=== PATIENT | female | born 1985 | race Caucasian/White ===

== ENCOUNTER 2016-10-05 20:33 | Emergency (ER) | payer BC ==
[2016-10-05] MEDS ORDERED: ONDANSETRON HCL IV 4 MG/2 ML VIAL IV ONE (20:58)
[2016-10-05] MEDS ORDERED: 0.9 % SODIUM CHLORIDE 1,000 ML BAG IV ONE ×2 (20:58→21:39)
[2016-10-05 21:08] LABS: BASO % 0.2 % (0-6); EOS % 0.7 % (0-6); GRAN % 74.6 % (47-80); HEMATOCRIT 43.2 % (35.0-47.0); HEMOGLOBIN 14.7 gm/dl (11.6-16.0); LYMPH % 19.3 % (16-45); MEAN CELL VOLUME 91.5 fl (81-97); MEAN CORPUSCULAR HEMOGLOBIN 31.1 pg (27-33); MEAN PLATELET VOLUME 11.4 fl (7.4-10.4); MONO % 5.2 % (0-9); PLATELET COUNT 299 K/uL (130-400); RED BLOOD COUNT 4.72 M/uL (3.80-5.40); RED CELL DISTRIBUTION WIDTH 13.4 % (11.5-14.5); WHITE BLOOD COUNT W/O DIFF 16.6 K/uL (4.2-12.2)
[2016-10-05 21:19] LABS: ALB/GLOB RATIO 1.5 (1.1-1.8); ALBUMIN 4.5 gm/dL (3.5-5.0); ALKALINE PHOSPHATASE 67 U/L (38-126); ALT/SGPT 21 U/L (9-52); ANION GAP 10.4 (7-16); AST/SGOT 17 U/L (14-36); BILIRUBIN,TOTAL 1.02 mg/dL (0.2-1.3); BLOOD UREA NITROGEN 18 mg/dL (7-17); CARBON DIOXIDE 20.6 mmol/L (22-30); CREATININE 0.7 mg/dL (0.52-1.04); EST GLOMERULAR FILTRATION RATE > 60 ml/min; GLUCOSE,RANDOM 90 mg/dL (70-110); LIPASE 130 U/L (23-300); TOTAL PROTEIN 7.5 gm/dL (6.3-8.2)
--- NOTE | 2016-10-05 21:21 | Emergency Department Record ---
History of Present Illness - General Chief complaint: Vomiting Stated complaint: WEAKNESS IN LEG, VOMITING Time Seen by Provider: 10/05/16 20:47 Source: Patient Mode of Arrival: Ambulatory Limitations: No limitations - History of Present Illness Initial comments: pt started vomiting 3 hours ago and has vomited multiple times. pt also became numb and rivera and felt like she was going to pass out. she has body aches. no diarrhea. she had a chicken wrap from [employer] for lunch. she had an allergy shot yesterday and started steroids MD complaint: Nausea, Vomiting Onset/Timin -: Hour(s) Description of Vomiting: Food contents Location: Diffuse Severity: Mild Severity scale (1-10): 4 Quality: Cramping Consistency: Constant, Getting worse Improves with: None Worsens with: None Context: Possible food poisoning Associated Symptoms: Nausea/vomiting, Weakness - Related Data Home Medications Medication Instructions Recorded Confirmed Last Taken Albuterol Sulfate [Proair Hfa] 1 - 2 puff IH Q4-6HR inhaler 09/03/15 Unknown Budesonide [Pulmicort] 1 mg IH 09/03/15 Unknown Prednisone [Prednisone 10Mg] 30 mg PO DAILY 10/05/16 10/05/16 Unknown Previous Rx's Medication Instructions Recorded Meclizine HCl [Antivert] 25 mg PO Q8H #10 tablet 10/06/16 Promethazine HCl [Phenergan] 25 mg PO Q8HR #10 tablet 10/06/16 Allergies Allergy/AdvReac Type Severity Reaction Status Date / Time cefuroxime axetil Allergy Intermediate VOMITING Unverified 06/22/16 11:36 [From Ceftin] egg Allergy Intermediate RESPIRATORY Unverified 06/22/16 11:36 IRRITATION penicillin V Allergy Intermediate RASH Unverified 06/22/16 11:36 Travel Screening - Travel/Exposure Within Last 30 Days Have you traveled within the last 30 days?: No Review of Systems Reviewed: No additional complaints except as noted below Constitutional: Reports: As per HPI. Denies: Chills, Fever, Malaise, Night sweats, Weakness, Weight change Eyes: Reports: As per HPI. Denies: Eye discharge, Eye pain, Photophobia, Vision change ENT: Reports: As per HPI. Denies: Congestion, Dental pain, Ear pain, Epistaxis , Hearing loss, Throat pain Respiratory: Reports: As per HPI. Denies: Cough, Dyspnea, Hemoptysis, Stridor, Wheezes Cardiovascular: Reports: As per HPI. Denies: Arrhythmia, Chest pain, Dyspnea on exertion, Edema, Murmurs, Orthopnea, Palpitations, Paroxysmal nocturnal dyspnea, Rheumatic Fever, Syncope Endocrine: Reports: As per HPI. Denies: Fatigue, Heat or cold intolerance, Polydipsia, Polyuria Gastrointestinal: Reports: As per HPI. Denies: Abdominal pain, Constipation, Diarrhea, Hematemesis, Hematochezia, Melena, Nausea, Vomiting Genitourinary: Reports: As per HPI. Denies: Abnormal menses, Discharge, Dyspareunia, Dysuria, Frequency, Hematuria, Incontinence, Retention, Urgency Musculoskeletal: Reports: As per HPI. Denies: Arthralgia, Back pain, Gout, Joint swelling, Myalgia, Neck pain Skin: Reports: As per HPI. Denies: Bruising, Change in color, Change in hair/ nails, Lesions, Pruritus, Rash Neurological: Reports: As per HPI. Denies: Abnormal gait, Confusion, Headache, Numbness, Paresthesias, Seizure, Tingling, Tremors, Vertigo, Weakness Psychiatric: Reports: As per HPI. Denies: Anxiety, Auditory hallucinations, Depression, Homicidal thoughts, Suicidal thoughts, Visual hallucinations Hematological/Lymphatic: Reports: As per HPI. Denies: Anemia, Blood Clots, Easy bleeding, Easy bruising, Swollen glands Past Medical History - SOCIAL HISTORY Smoking Status: Never smoker Alcohol Use: None Drug Use: None - RESPIRATORY Hx Respiratory Disorders: Yes Hx Asthma: Yes - CARDIOVASCULAR Hx Cardio Disorders: No - NEURO Hx Neuro Disorders: No - GI Hx GI Disorders: No - Hx Genitourinary Disorders: No - ENDOCRINE Hx Endocrine Disorders: No - MUSCULOSKELETAL Hx Musculoskeletal Disorders: No - PSYCH Hx Psych Problems: No - HEMATOLOGY/ONCOLOGY Hx Hematology/Oncology Disorders: No Family Medical History Any Significant Family History?: No Physical Exam - General General Appearance: Alert, Oriented x3, Cooperative, Mild distress, Other (pt hyperventilating, instructed to slow breathing) - Head Head exam: Normal inspection - Eye Eye exam: Normal appearance, PERRL, EOMI Pupils: Normal accommodation - ENT ENT exam: Normal exam, Mucous membranes moist, Normal external ear exam, Normal orophraynx Ear exam: Normal external inspection. negative: External canal tenderness Nasal Exam: Normal inspection. negative: Discharge, Sinus tenderness Mouth exam: Normal external inspection, Tongue normal Teeth exam: Normal inspection. negative: Dental caries Throat exam: Normal inspection. negative: Tonsillar erythema, Tonsillar exudate - Neck Neck exam: Normal inspection, Full ROM. negative: Tenderness - Respiratory Respiratory exam: Normal lung sounds bilaterally. negative: Respiratory distress - Cardiovascular Cardiovascular Exam: Regular rate, Normal rhythm, Normal heart sounds - GI/Abdominal GI/Abdominal exam: Soft, Normal bowel sounds. negative: Tenderness - Rectal Rectal exam: Deferred - exam: Deferred - Extremities Extremities exam: Normal inspection, Full ROM, Normal capillary refill. negative: Tenderness - Back Back exam: Reports: Normal inspection, Full ROM. Denies: Muscle spasm, Rash noted, Tenderness - Neurological Neurological exam: Alert, CN II-XII intact, Normal gait, Oriented X3 - Psychiatric Psychiatric exam: Normal affect, Normal mood - Skin Skin exam: Dry, Intact, Normal color, Warm Course Vital Signs 10/05/16 20:41 Temperature 97.9 F Pulse Rate [ 79 Pulse Ox Probe] Respiratory 24 Rate Blood Pressure 112/54 [Left Arm] Pulse Ox 100 - Reevaluation(s) Reevaluation #1: 10/06/16 00:11 pt feels better Medical Decision Making - Lab Data Result diagrams: 10/05/16 21:00 10/05/16 21:00 Lab Results 10/05/16 Range/Units 21:00 WBC 16.6 H (4.2-12.2) K/uL RBC 4.72 (3.80-5.40) M/uL Hgb 14.7 (11.6-16.0) gm/dl Hct 43.2 (35.0-47.0) % MCV 91.5 (81-97) fl MCH 31.1 (27-33) pg MCHC 34.0 (32-36) g/dl RDW 13.4 (11.5-14.5) % Plt Count 299 (130-400) K/uL MPV 11.4 H (7.4-10.4) fl Gran % 74.6 (47-80) % Lymphocytes % 19.3 (16-45) % Monocytes % 5.2 (0-9) % Eosinophils % 0.7 (0-6) % Basophils % 0.2 (0-6) % Disposition Disposition: Discharge Clinical Impression: Vertigo Vomiting Qualifiers: Vomiting type: unspecified Vomiting Intractability: intractable Nausea presence : with nausea Qualified Code(s): R11.2 - Nausea with vomiting, unspecified Disposition: Home, Self-Care Condition: (1) Good Instructions: Acute Nausea and Vomiting (ED), Vertigo (ED) Additional Instructions: follow up with family doctor. return sooner if worse. push fluids may take phenergan for nausea or antivert for dizziness but do not take both at the same time Prescriptions: Promethazine HCl [Phenergan] 25 mg PO Q8HR #10 tablet Meclizine HCl [Antivert] 25 mg PO Q8H #10 tablet Forms: Patient Portal Access
[2016-10-05] MEDS ORDERED: PROMETHAZINE HCL 25 MG/ML VIAL IVP ONE (22:10)
[2016-10-05 22:49] LABS: URINE APPEARANCE CLEAR; URINE BILIRUBIN NEGATIVE (NEGATIVE); URINE BLOOD SMALL (NEGATIVE); URINE COLOR YELLOW; URINE GLUCOSE (UA) NEGATIVE (NEGATIVE); URINE KETONE 15 mg/dL (NEGATIVE); URINE LEUKOCYTE ESTERASE NEGATIVE (NEGATIVE); URINE NITRITE NEGATIVE (NEGATIVE); URINE PROTEIN NEGATIVE (NEGATIVE); URINE UROBILINOGEN 0.2 E.U./dL (0.20 - 1.00)
[2016-10-05 22:53] LABS: HCG,QUALITATIVE URINE NEGATIVE (NEGATIVE)
[2016-10-05 23:05] LABS: URINE AMORPHOUS SEDIMENT 1+; URINE MUCUS LIGHT; URINE WBC 0 - 2 (0-2/hpf)
[2016-10-06] MEDS ORDERED: PROMETHAZINE HCL 25 MG TABLET PO ONE (00:14)
[2016-10-06] MEDS ORDERED: ONDANSETRON HCL IV 4 MG/2 ML VIAL IVP ONE (00:27)
--- NOTE | 2016-10-06 09:54 | CT SCAN REPORT ---
EXAM: HEAD CT WITHOUT CONTRAST HISTORY: VERTIGO WITH NAUSEA AND VOMITING TONIGHT. TECHNIQUE: Axial CT scan of the head was performed without IV contrast. A preliminary report was provided by [facility]. Comparison: None. FINDINGS: No definite acute intracranial hemorrhage identified. No focal mass effect or midline shift apparent. No definite acute infarct or intracranial mass lesion is seen. Considerable opacification in both maxillary sinuses probably with an air fluid level in the left. Considerable membrane thickening in the ethmoids bilaterally and moderate membrane thickening in the sphenoids bilaterally. The frontal sinuses appear relatively clear. The visualized mastoids and middle ear cavities also appear clear. IMPRESSION: 1. NO DEFINITE ACUTE INTRACRANIAL HEMORRHAGE OR FOCAL MASS EFFECT EVIDENT. 2. CONSIDERABLE OPACIFICATION OF THE MAXILLARY SINUSES WITH AN AIR FLUID LEVEL IN THE LEFT. MODERATE MEMBRANE THICKENING IN THE ETHMOID AND SPHENOID SINUSES WELL. JOB NUMBER: [id number] [facility]TD[facility]
== END 2016-10-06 00:34 | disposition home or self-care (01) ==
LOC: ER 20:33
DX: R42 Dizziness and giddiness (principal); R11.2 Nausea with vomiting, unspecified; R20.0 Anesthesia of skin; R53.1 Weakness
CPT/HCPCS: 99284 ×2; 96376; 96374; 96375; 83690; 85025; 80053; 81001; 81025; 70450; J2405; J2550; J7030; Q0170

== ENCOUNTER 2017-05-21 22:16 | Observation (INO) | payer BC ==
[2017-05-21] MEDS ORDERED: ONDANSETRON HCL IV 4 MG/2 ML VIAL IVP ONE (22:27)
[2017-05-21] MEDS ORDERED: 0.9 % SODIUM CHLORIDE 1000ML 1,000 ML IV SCH ×2 (22:30→23:45)
[2017-05-21 22:51] LABS: BASO % 0.2 % (0-6); EOS % 1.2 % (0-6); HEMATOCRIT 45.4 % (35.0-47.0); HEMOGLOBIN 15.8 gm/dl (11.6-16.0); LYMPH % 5.5 % (16-45); MEAN CELL VOLUME 90.8 fl (81-97); MEAN CORPUSCULAR HEMOGLOBIN 31.6 pg (27-33); MEAN CORPUSCULAR HGB CONC 34.8 g/dl (32-36); MEAN PLATELET VOLUME 10.9 fl (7.4-10.4); MONO % 5.5 % (0-9); PLATELET COUNT 272 K/uL (130-400); RED CELL DISTRIBUTION WIDTH 13.1 % (11.5-14.5); WHITE BLOOD COUNT W/O DIFF 17.5 K/uL (4.2-12.2)
--- NOTE | 2017-05-21 23:01 | Emergency Department Record ---
History of Present Illness - General Chief complaint: Nausea, Vomiting, Diarrhea Stated complaint: N/V/D Time Seen by Provider: 05/21/17 22:25 Source: Patient Mode of Arrival: Ambulatory Limitations: No limitations - History of Present Illness Initial comments: 31 yo female presents to ED for evaluation of moderate to severe nausea, vomiting, and watery stools that began this afternoon. Patient denies fevers, but does report similar symptoms with her daughter several days ago. Patient denies health problems at her baseline, denies fevers/chills or cough symptoms. MD complaint: Abdominal pain, Diarrhea, Nausea Onset/Timin -: Days(s) Description of Vomiting: Bilious Description of Diarrhea: Water Associated Abdominal Pain: Yes Location: Diffuse Severity: Moderate Quality: Cramping Consistency: Intermittent Improves with: None Worsens with: None Associated Symptoms: Denies other symptoms - Related Data Allergies Allergy/AdvReac Type Severity Reaction Status Date / Time cefuroxime axetil Allergy Intermediate VOMITING Unverified 06/22/16 11:36 [From Ceftin] egg Allergy Intermediate RESPIRATORY Unverified 06/22/16 11:36 IRRITATION penicillin V Allergy Intermediate RASH Unverified 06/22/16 11:36 Review of Systems Constitutional: Denies: Chills, Fever, Malaise, Night sweats Eyes: Denies: Eye discharge, Eye pain ENT: Denies: Congestion, Ear pain, Epistaxis Respiratory: Denies: Cough, Dyspnea Cardiovascular: Denies: Chest pain, Dyspnea on exertion Endocrine: Denies: Fatigue, Heat or cold intolerance Gastrointestinal: Reports: Abdominal pain, Diarrhea, Nausea, Vomiting Genitourinary: Denies: Incontinence, Retention Musculoskeletal: Denies: Arthralgia, Back pain, Gout, Joint swelling Skin: Denies: Bruising, Change in color Neurological: Denies: Abnormal gait, Confusion, Headache, Seizure Psychiatric: Denies: Anxiety Hematological/Lymphatic: Denies: Anemia, Blood Clots Past Medical History - SOCIAL HISTORY Smoking Status: Never smoker Alcohol Use: None Drug Use: None - RESPIRATORY Hx Respiratory Disorders: Yes Hx Asthma: Yes - CARDIOVASCULAR Hx Cardio Disorders: No - NEURO Hx Neuro Disorders: No - GI Hx GI Disorders: No - Hx Genitourinary Disorders: No - ENDOCRINE Hx Endocrine Disorders: No - MUSCULOSKELETAL Hx Musculoskeletal Disorders: No - PSYCH Hx Psych Problems: No - HEMATOLOGY/ONCOLOGY Hx Hematology/Oncology Disorders: Yes Hx Unexplained Bleeding: Yes Hx Blood Transfusions: Yes Hx Blood Transfusion Reaction: No Comment:: DIC after with first child Family Medical History Any Significant Family History?: No Physical Exam - General General Appearance: Alert, Oriented x3, Cooperative, No acute distress Limitations: No limitations - Head Head exam: Atraumatic, Normocephalic, Normal inspection Head exam detail: negative: Abrasion, Contusion, Haskins's sign, General tenderness, Hematoma, Laceration - Eye Eye exam: Normal appearance. negative: Conjunctival injection, Periorbital swelling, Periorbital tenderness, Scleral icterus - ENT ENT exam: Mucous membranes dry Ear exam: negative: Auricular hematoma, Auricular trauma Nasal Exam: negative: Active bleeding, Discharge, Dried blood, Foreign body Mouth exam: negative: Drooling, Laceration, Muffled voice, Tongue elevation - Neck Neck exam: Normal inspection. negative: Meningismus, Tenderness - Respiratory Respiratory exam: Normal lung sounds bilaterally. negative: Rales, Respiratory distress, Rhonchi, Stridor - Cardiovascular Cardiovascular Exam: Normal rhythm, Normal heart sounds, Tachycardia - GI/Abdominal GI/Abdominal exam: Soft. negative: Rebound, Rigid, Tenderness - Rectal Rectal exam: Deferred - exam: Deferred - Extremities Extremities exam: Normal inspection. negative: Pedal edema, Tenderness - Back Back exam: Denies: CVA tenderness (R), CVA tenderness (L) - Neurological Neurological exam: Alert, Normal gait, Oriented X3 - Psychiatric Psychiatric exam: Normal affect, Normal mood - Skin Skin exam: Normal color. negative: Abrasion Type of lesion: negative: abrasion Course Vital Signs 05/21/17 22:40 Temperature 97.9 F Pulse Rate [ 106 H Pulse Ox Probe] Respiratory 20 Rate Blood Pressure 122/82 [Left Arm] Pulse Ox 99 - Reevaluation(s) Reevaluation #1: 05/21/17 23:34 Labs reviewed, WBC 17.5, HCO3 18, AG 20. Labs are otherwise grossly unremarkable for an acute process. UA/Stool studies pending, in CT currently. Reevaluation #2: 05/22/17 00:12 CT Abdomen and Pelvis: Subtle fat stranding transverse colon, may be related to scarring Early inflammatory changes not excluded. No obstruction. Patient reassessed, reports that her symptoms are beginning to improve. Reevaluation #3: 05/22/17 01:29 UA reviewed and appears negative for infection. Reevaluation #4: 05/22/17 01:40 Patient reassessed, continues to be ill-appearing/nauseated despite numerous anti-emetics. Will admit for observation and continued IVF resuscitation. Medical Decision Making - Lab Data Result diagrams: 05/21/17 22:45 05/21/17 22:45 Lab Results 05/21/17 Range/Units 22:45 WBC 17.5 H (4.2-12.2) K/uL RBC 5.00 (3.80-5.40) M/uL Hgb 15.8 (11.6-16.0) gm/dl Hct 45.4 (35.0-47.0) % MCV 90.8 (81-97) fl MCH 31.6 (27-33) pg MCHC 34.8 (32-36) g/dl RDW 13.1 (11.5-14.5) % Plt Count 272 (130-400) K/uL MPV 10.9 H (7.4-10.4) fl Neutrophils % 85.0 H (47-80) % Band Neutrophils % 2.0 (0-5) % Lymphocytes % 5.5 L (16-45) % Monocytes % 5.5 (0-9) % Eosinophils % 1.2 (0-6) % Basophils % 0.2 (0-6) % Lymphocytes 6.0 L (16-45) % Monocytes 6.0 (0-9) % Basophils 0.0 (0-6) % Eosinophil Count 1.0 (0-6) % Disposition Disposition: Admit Clinical Impression: Nausea vomiting and diarrhea Disposition: Still a Patient at [facility] Decision to Admit: Admit from ER Decision to Admit Date: 05/22/17 Decision to Admit Time: :42 Condition: (2) Stable Forms: Patient Portal Access Time of Disposition: :42 Quality - Quality Measures Quality Measures: N/A - Blood Pressure Screening Does Patient Have Any of the Following: No Blood Pressure Classification: Normal BP Reading Systolic Measurement: 100 Diastolic Measurement: 65 Screening for High Blood Pressure: < Normal BP, F/U Not Required > [[id number]]
[2017-05-21 23:02] LABS: BLOOD UREA NITROGEN 16 mg/dL (6-20)
[2017-05-21 23:03] LABS: CREATININE 0.7 mg/dL (0.5-0.9); EST GLOMERULAR FILTRATION RATE > 60 mL/min; TOTAL PROTEIN 7.7 g/dL (6.6-8.7)
[2017-05-21 23:04] LABS: INFLUENZA A NEGATIVE (NEGATIVE); INFLUENZA B NEGATIVE (NEGATIVE)
[2017-05-21 23:05] LABS: GLUCOSE,RANDOM 160 mg/dL (74-109)
[2017-05-21 23:08] LABS: ALB/GLOB RATIO 1.8 (1.1-1.8); ALBUMIN 4.9 g/dL (4.0-5.0); ALKALINE PHOSPHATASE 57 U/L (35-104); ALT/SGPT 17 U/L (<33); AST/SGOT 20 U/L (10.0-35.0); LIPASE 43 U/L (13-60)
[2017-05-21] MEDS ORDERED: PROMETHAZINE HCL 12.5 MG in 0.9 % SODIUM CHLORIDE 100ML 100 ML IVPB ONE (23:10)
[2017-05-22] MEDS ORDERED: ONDANSETRON HCL IV 4 MG/2 ML VIAL IVP ONE (00:57)
[2017-05-22 01:16] LABS: URINE APPEARANCE CLEAR; URINE BILIRUBIN NEGATIVE (NEGATIVE); URINE BLOOD SMALL (NEGATIVE); URINE COLOR YELLOW; URINE GLUCOSE (UA) NEGATIVE (NEGATIVE); URINE KETONE 15 mg/dL (NEGATIVE); URINE LEUKOCYTE ESTERASE NEGATIVE (NEGATIVE); URINE NITRITE NEGATIVE (NEGATIVE); URINE PROTEIN NEGATIVE (NEGATIVE); URINE UROBILINOGEN 0.2 E.U./dL (0.20 - 1.00)
[2017-05-22 01:19] LABS: HCG,QUALITATIVE URINE NEGATIVE (NEGATIVE); URINE BACTERIA NONE SEEN; URINE EPITHELIAL CELLS 0 - 2 (FEW); URINE RBC 0 - 2 (NONE SEEN); URINE WBC 0 - 2 (0-2/hpf)
[2017-05-22 01:20] LABS: AMPHETAMINE SCREEN URINE NOT DETECTED; BARBITURATE SCREEN URINE NOT DETECTED; BENZODIAZEPINE SCREEN URINE NOT DETECTED; COCAINE SCREEN URINE NOT DETECTED; METHADONE SCREEN URINE NOT DETECTED; METHAMPHETAMINE SCREEN NOT DETECTED; OPIATE SCREEN URINE NOT DETECTED; OXYCODONE SCREEN URINE NOT DETECTED; PHENCYCLIDINE SCREEN URINE NOT DETECTED; PROPOXYPHENE SCREEN URINE NOT DETECTED; THC SCREEN URINE NOT DETECTED; TRICYCLIC ANTIDEPRESSANT SCRN NOT DETECTED
[2017-05-22] MEDS ORDERED: DIPHENHYDRAMINE HCL IV 50 MG/ML VIAL IVP ONE (01:49)
[2017-05-22] MEDS ORDERED: PROMETHAZINE HCL 12.5 MG in 0.9 % SODIUM CHLORIDE 100ML 100 ML IVPB ONE (01:49)
[2017-05-22] MEDS ORDERED: PROMETHAZINE HCL 12.5 MG in 0.9 % SODIUM CHLORIDE 100ML 100 ML IVPB PRN (02:23)
[2017-05-22] MEDS ORDERED: DIPHENHYDRAMINE HCL IV 50 MG/ML VIAL IVP PRN (02:23)
[2017-05-22] MEDS ORDERED: HYOSCYAMINE SULFATE ODT 0.125 MG TAB.SUBL SL PRN (02:23)
[2017-05-22] MEDS ORDERED: ONDANSETRON HCL IV 4 MG/2 ML VIAL IVP PRN (02:23)
[2017-05-22] MEDS: 0.9 % SODIUM CHLORIDE 1000ML 1,000 ML IV PRN ×2 (02:59→10:03)
--- NOTE | 2017-05-22 05:23 | History & Physical ---
History of Present Illness - Date of Service Date of Service for History & Physical: 05/22/17 - History of Present Illness Admitting Diagnosis: Nausea, vomiting, diarrhea. Dehydration History of Present Illness: Kayleigh is a 31 year-old female who presented to the ED on for severe nausea, vomiting, and watery stools that began that afternoon. She denied fever, chillls, and cough at home. She did stated that her daughter was ill with a GI virus several days ago. She has a history of moderate persistent asthma since age 2. In the ED, she was tachycardic with a heart rate of . Her urine was positive for sm. blood and ketones, neg leuks. Her WBC was 17.5 and anion gap 20.0. Stool cultures were ordered. An abdomen CT was done to r/o colitis and showed early inflammation. She was admitted for observation for IV re- hydration and antiemetics. 05/22/17 0830: Pt. is resting in bed this morning. She states that she has not vomited or had diarrhea since before midnight. She states that she talked to her this morning and now her and two daughters (ages 2 and 5) are ill with vomiting and diarrhea. She is receiving 0.9% NaCl at 125ml/hr. She has not required any antiemetics during the night. Her WBC count decreased to 8.4 this morning and her anion gap is within normal range at 13.0. Plan to evaluate how pt. tolerates clear liquid diet and consider discharge home today. PCP: Dr. Diaz Travel Screening - Travel/Exposure Within Last 30 Days Have you traveled within the last 30 days?: No - Travel/Exposure Within Last Year Have you traveled outside the [place] in the last year?: No - Additonal Travel Details Have you been exposed to anyone with a communicable illness?: No - Travel Symptoms Symptom Screening: None Review of Systems Constitutional: Denies: Chills, Fever, Malaise, Night sweats Eyes: Denies: Eye discharge, Eye pain ENT: Denies: Congestion, Ear pain, Epistaxis Respiratory: Denies: Cough, Dyspnea Cardiovascular: Denies: Chest pain, Dyspnea on exertion Endocrine: Denies: Fatigue, Heat or cold intolerance Gastrointestinal: Reports: Abdominal pain, Diarrhea, Nausea, Vomiting Genitourinary: Denies: Incontinence, Retention Musculoskeletal: Denies: Arthralgia, Back pain, Gout, Joint swelling Skin: Denies: Bruising, Change in color Neurological: Denies: Abnormal gait, Confusion, Headache, Seizure Psychiatric: Denies: Anxiety Hematological/Lymphatic: Denies: Anemia, Blood Clots Past Medical History - SOCIAL HISTORY Smoking Status: Never smoker Alcohol Use: Occasional Drug Use: None - RESPIRATORY Hx Respiratory Disorders: Yes Hx Asthma: Yes - CARDIOVASCULAR Hx Cardio Disorders: No - NEURO Hx Neuro Disorders: No - GI Hx GI Disorders: No - Hx Genitourinary Disorders: No - ENDOCRINE Hx Endocrine Disorders: No - MUSCULOSKELETAL Hx Musculoskeletal Disorders: No - PSYCH Hx Psych Problems: No - HEMATOLOGY/ONCOLOGY Hx Hematology/Oncology Disorders: Yes Hx Unexplained Bleeding: Yes Hx Blood Transfusions: Yes Hx Blood Transfusion Reaction: No Comment:: DIC after with first child Family Medical History Any Significant Family History?: No H&P Meds/Allergies - Allergies Allergies: Allergies Allergy/AdvReac Type Severity Reaction Status Date / Time cefuroxime axetil Allergy Intermediate VOMITING Unverified 06/22/16 11:36 [From Ceftin] egg Allergy Intermediate RESPIRATORY Unverified 06/22/16 11:36 IRRITATION penicillin V Allergy Intermediate RASH Unverified 06/22/16 11:36 - Home Medications Home Medications Medication Instructions Recorded Confirmed Last Taken Budesonide [Pulmicort Flexhaler] 360 mcg IH BID 05/22/17 05/22/17 05/21/17 07:00 - Active Medications Active Medications: Current Medications Budesonide (Pulmicort) 1 mg INH DAILY MICHAEL Diphenhydramine HCl (Benadryl Iv) 12.5 mg IVP Q4H PRN PRN Reason: NAUSEA/VOMITING Hyoscyamine (Levsin Odt) 0.25 mg SL Q4H PRN PRN Reason: Abdominal Pain Sodium Chloride () 1,000 mls @ 125 mls/hr IV .Q8H PRN PRN Reason: LARGE VOLUME IV Last Admin: 05/22/17 02:59 Dose: 125 mls/hr Promethazine HCl 12.5 mg/ (Sodium Chloride) 100.5 mls @ 200 mls/hr IVPB Q6H PRN PRN Reason: NAUSEA/VOMITING Ondansetron HCl (Zofran) 4 mg IVP Q4H PRN PRN Reason: NAUSEA Physical Exam - Vital Signs Vital Signs: Vital Signs - Last 24 Hrs Temp Pulse Resp BP BP Pulse Ox 05/22/17 03:32 97.7 F 96 H 18 115/65 100 05/22/17 02:23 90 18 96 05/22/17 02:13 95 H 105/67 98 - General General Appearance: Alert, Oriented x3, Cooperative, No acute distress Limitations: No limitations - Head Head exam: Atraumatic, Normocephalic, Normal inspection Head exam detail: negative: Abrasion, Contusion, Haskins's sign, General tenderness, Hematoma, Laceration - Eye Eye exam: Normal appearance. negative: Conjunctival injection, Periorbital swelling, Periorbital tenderness, Scleral icterus - ENT ENT exam: Mucous membranes moist Ear exam: negative: Auricular hematoma, Auricular trauma Nasal Exam: negative: Active bleeding, Discharge, Dried blood, Foreign body Mouth exam: negative: Drooling, Laceration, Muffled voice, Tongue elevation - Neck Neck exam: Normal inspection. negative: Meningismus, Tenderness - Respiratory Respiratory exam: Normal lung sounds bilaterally. negative: Rales, Respiratory distress, Rhonchi, Stridor - Cardiovascular Cardiovascular Exam: Normal rhythm, Normal heart sounds - GI/Abdominal GI/Abdominal exam: Soft. negative: Rebound, Rigid, Tenderness - Rectal Rectal exam: Deferred - exam: Deferred - Extremities Extremities exam: Normal inspection. negative: Pedal edema, Tenderness - Back Back exam: Denies: CVA tenderness (R), CVA tenderness (L) - Neurological Neurological exam: Alert, Normal gait, Oriented X3 - Psychiatric Psychiatric exam: Normal affect, Normal mood - Skin Skin exam: Normal color. negative: Abrasion Type of lesion: negative: abrasion Results - Labs Result Diagrams: 05/22/17 07:00 05/22/17 07:00 - Imaging and Cardiology CT scan - abdomen Status: Report reviewed VTE H&P Assessment - Risk for VTE Risk for VTE: No Risk Level: Very Low Risk Assessment Date: 05/22/17 Risk Assessment Time: 08:43 VTE Orders Placed or Will Be Placed: No VTE Reason for No Prophylaxis: Not Indicated Plan - Detailed Diagnosis and Plan (1) Nausea vomiting and diarrhea Current Visit: Yes Status: Acute Base Code: R11.2 - NAUSEA WITH VOMITING, UNSPECIFIED; R19.7 - DIARRHEA, UNSPECIFIED Comment: 05/22/17 0840- pt. presented to ED yesterday after nausea/vomiting/diarrhea that began that day, admitted for rehydration and control of nausea with antiemetics. Vital signs remain stable. WBC decreased from 17.5 to 8.4 today, anion gap 13.0 from 20.0 yesterday. Stool cultures pending. Neg rotavirus. Continue 0.9% NaCl at 125/ hr. Continue prn antiemetics: zofran 4mg ivp q4h prn, promethazine hcl 12.5 q6h prn, benadryl 12.5mg iv q4h prn, levsin odt 0.25mg sl q4h prn abdominal pain. Clear fluids ordered today for breakfast. Will plan to advance diet as tolerated and discharge today if pt. tolerates diet and nausea controlled. (2) Full code status Current Visit: Yes Status: Acute Base Code: Z78.9 - OTHER SPECIFIED HEALTH STATUS Comment: 05/22/17 0840- pt. is full code status
[2017-05-22 07:11] LABS: HEMATOCRIT 38.4 % (35.0-47.0); HEMOGLOBIN 12.9 gm/dl (11.6-16.0); MEAN CELL VOLUME 92.8 fl (81-97); MEAN CORPUSCULAR HEMOGLOBIN 31.2 pg (27-33); MEAN CORPUSCULAR HGB CONC 33.6 g/dl (32-36); MEAN PLATELET VOLUME 10.7 fl (7.4-10.4); PLATELET COUNT 213 K/uL (130-400); RED BLOOD COUNT 4.14 M/uL (3.80-5.40); RED CELL DISTRIBUTION WIDTH 13.1 % (11.5-14.5); WHITE BLOOD COUNT W/O DIFF 8.4 K/uL (4.2-12.2)
[2017-05-22 07:36] LABS: ALB/GLOB RATIO 1.6 (1.1-1.8); ALBUMIN 3.5 g/dL (4.0-5.0); ALKALINE PHOSPHATASE 36 U/L (35-104); ALT/SGPT 14 U/L (<33); AST/SGOT 13 U/L (10.0-35.0); BLOOD UREA NITROGEN 10 mg/dL (6-20); CREATININE 0.6 mg/dL (0.5-0.9); EST GLOMERULAR FILTRATION RATE > 60 mL/min; GLUCOSE,RANDOM 115 mg/dL (74-109); TOTAL PROTEIN 5.7 g/dL (6.6-8.7)
[2017-05-22 07:59] LABS: PLATELET ESTIMATE NORMAL (NORMAL)
--- NOTE | 2017-05-22 08:27 | CT SCAN REPORT ---
EXAM: CT OF THE ABDOMEN AND PELVIS WITH CONTRAST HISTORY: LOWER ABDOMINAL PAIN WITH VOMITING AND DIARRHEA FOR THE LAST SIX HOURS. TECHNIQUE: Contrast enhanced helical CT examination of the abdomen and pelvis was performed including delayed images through the kidneys and the urinary bladder with 100 ml of Omnipaque 300 utilized. Comparison: None. FINDINGS: The lung bases are clear. No pleural or pericardial effusion. The heart is not enlarged. Bilateral breast implants are partially imagined. These appear intact. The liver, spleen, pancreas, adrenal glands, and kidneys are normal in appearance. The gallbladder is unremarkable and no biliary ductal dilatation is seen. No intraabdominal nor retroperitoneal lymphadenopathy. The vasculature is normal in appearance. The uterus is retroflexed. There is an area of low density in the anterior aspect of the lower uterine segment measuring 11 x 11 mm. This is consistent with post change. No suspicious pelvic mass, lymphadenopathy, or free pelvic fluid is seen. No intrinsic urinary bladder abnormality is identified though evaluation is limited by lack of distention. No gross bowel dilatation nor bowel wall thickening. The appendix is visualized and normal in appearance. There is apparent borderline wall thickening of the transverse colon likely due to incomplete distention. There is equivocal straightening of fat adjacent to the transverse colon. No free intraperitoneal air. No lytic or blastic bone lesion. A tiny fat filled umbilical hernia is present. No lytic or blastic bone lesion. There are mild degenerative end plate changes scattered in the lower thoracic and upper thoracic portions of the spine. IMPRESSION: 1. NO DEFINITE CT EVIDENCE OF AN ACUTE INTRAABDOMINAL NOR INTRAPELVIC PROCESS. 2. THE WALL OF THE TRANSVERSE COLON APPEARS BORDERLINE THICKENED AND THERE IS EQUIVOCAL ADJACENT FAT STRANDING. WHILE THESE FINDINGS MAY JUST RELATE TO LACK OF DISTENTION AND MINOR MOTION ARTIFACT, EARLY INFLAMMATORY CHANGE CANNOT BE ENTIRELY EXCLUDED. 3. POST CHANGES WITHIN THE ANTERIOR ASPECT OF THE LOWER UTERINE SEGMENT. JOB NUMBER: [id number] [facility]
[2017-05-22] MEDS ORDERED: BUDESONIDE 0.5 MG/2 ML INH SCH (10:00)
--- NOTE | 2017-05-22 15:23 | Discharge Summary ---
Providers Discharge Summary Date: 05/22/17 Date of admission: 05/22/17 02:09 Attending physician: Devin Santana Primary care physician: Nirmala Diaz Physical Exam - Vital Signs Vital Signs: Vital Signs - Last 24 Hrs Temp Pulse Resp BP BP Pulse Ox 05/22/17 10:24 100.0 F H 101 H 16 105/49 99 05/22/17 09:00 96 H 18 05/22/17 03:32 97.7 F 96 H 18 115/65 100 05/22/17 02:23 90 18 96 05/22/17 02:13 95 H 105/67 98 - General General Appearance: Alert, Oriented x3, Cooperative, No acute distress Limitations: No limitations - Head Head exam: Atraumatic, Normocephalic, Normal inspection Head exam detail: negative: Abrasion, Contusion, Haskins's sign, General tenderness, Hematoma, Laceration - Eye Eye exam: Normal appearance. negative: Conjunctival injection, Periorbital swelling, Periorbital tenderness, Scleral icterus - ENT ENT exam: Mucous membranes moist Ear exam: negative: Auricular hematoma, Auricular trauma Nasal Exam: negative: Active bleeding, Discharge, Dried blood, Foreign body Mouth exam: negative: Drooling, Laceration, Muffled voice, Tongue elevation - Neck Neck exam: Normal inspection. negative: Meningismus, Tenderness - Respiratory Respiratory exam: Normal lung sounds bilaterally. negative: Rales, Respiratory distress, Rhonchi, Stridor - Cardiovascular Cardiovascular Exam: Normal rhythm, Normal heart sounds - GI/Abdominal GI/Abdominal exam: Soft. negative: Rebound, Rigid, Tenderness - Rectal Rectal exam: Deferred - exam: Deferred - Extremities Extremities exam: Normal inspection. negative: Pedal edema, Tenderness - Back Back exam: Denies: CVA tenderness (R), CVA tenderness (L) - Neurological Neurological exam: Alert, Normal gait, Oriented X3 - Psychiatric Psychiatric exam: Normal affect, Normal mood - Skin Skin exam: Normal color. negative: Abrasion Type of lesion: negative: abrasion Hospitalization - Hospitalization Admission Diagnosis: Nausea, vomiting, diarrhea. Dehydration - Problem List/Discharge Diagnosis (1) Nausea vomiting and diarrhea Current Visit: Yes Status: Acute Base Code: R11.2 - NAUSEA WITH VOMITING, UNSPECIFIED; R19.7 - DIARRHEA, UNSPECIFIED Comment: 05/22/17 0840- pt. presented to ED yesterday after nausea/vomiting/diarrhea that began that day, admitted for rehydration and control of nausea with antiemetics. Vital signs remain stable. WBC decreased from 17.5 to 8.4 today, anion gap 13.0 from 20.0 yesterday. Pt. has not vomited since admission. Pt. continues to have some loose stools. Stool cultures pending. Neg rotavirus. Pt. has tolerated clear liquids with one episode of mild nausea this morning- 4mg zofran was administered and effective. Plan to discharge home this afternoon. (2) Full code status Current Visit: Yes Status: Acute Base Code: Z78.9 - OTHER SPECIFIED HEALTH STATUS Comment: 05/22/17 0840- pt. is full code status - Hospitalization Course Disposition: Home, Self-Care Hospital Course: Kayleigh is a 31 year-old female who presented to the ED on for severe nausea, vomiting, and watery stools that began that afternoon. She denied fever, chillls, and cough at home. She did stated that her daughter was ill with a GI virus several days ago. She has a history of moderate persistent asthma since age 2. In the ED, she was tachycardic with a heart rate of . Her urine was positive for sm. blood and ketones, neg leuks. Her WBC was 17.5 and anion gap 20.0. Stool cultures were ordered. An abdomen CT was done to r/o colitis and showed early inflammation. She was admitted for observation for IV re- hydration and antiemetics. 05/22/17 0830: Pt. is resting in bed this morning. She states that she has not vomited or had diarrhea since before midnight. She states that she talked to her this morning and now her and two daughters (ages 2 and 5) are ill with vomiting and diarrhea. She is receiving 0.9% NaCl at 125ml/hr. She has not required any antiemetics during the night. Her WBC count decreased to 8.4 this morning and her anion gap is within normal range at 13.0. Plan to evaluate how pt. tolerates clear liquid diet and consider discharge home today. 05/22/17 1520: Pt. is resting comfortably in bed. She is tolerating clear liquids with minimal discomfort. She continues to have diarrhea, however, she states that the frequency is decreasing. She had one episode of nausea this morning and zofran 4mg iv was effective. Planning to discharge home this afternoon. PCP: Dr. Diaz Abnormal Labs: Abnormal Lab Results 05/22/17 05/22/17 05/22/17 Range/Units 07:00 07:00 07:50 MPV 10.7 H (7.4-10.4) fl Band Neutrophils % 10.0 H (0-5) % Lymphocytes 14.0 L (16-45) % Chloride 110 H (98-107) mmol/L Carbon Dioxide 20.0 L (22-29) mmol/L Random Glucose 115 H (74-109) mg/dL Calcium 7.3 L (8.6-10.0) mg/dL Total Protein 5.7 L (6.6-8.7) g/dL Albumin 3.5 L (4.0-5.0) g/dL Stool for White Cells Few wbc's observed H (NO WBC'S) Condition at Discharge: (2) Stable Discharge Diagnosis: Gastroenteritis VTE Discharge VTE Reason For No Overlap Therapy: Not Indicated Discharge Medications - Discharge Medications Prescriptions: Ondansetron [Zofran Odt] 8 mg SL Q8H PRN #18 tab.rapdis PRN Reason: Nausea/Vomiting Home Medications: Ambulatory Orders Albuterol Sulfate [Proair Hfa] 1 - 2 puff IH Q4-6HR inhaler 09/03/15 [Last Taken Unknown] Budesonide [Pulmicort Flexhaler] 360 mcg IH BID 05/22/17 [Last Taken 05/21/17 07 :00] Ondansetron [Zofran Odt] 8 mg SL Q8H PRN #18 tab.rapdis 05/22/17 [Last Taken Unknown] Discharge Plan - Discharge Instructions Activity at Discharge: Increase Activity as Tolerated Diet at Discharge: Advance to Usual Diet Additional Instructions: Clear liquid diet, advance diet as tolerated -Zofran 8mg up to three times daily for nausea -Go to ED if symptoms worsen Follow up with your pcp in 7-10 days Quality Measures - Quality Measures Quality Measures: Documentation of Current Medications in Medical Record, Screening for High Blood Pressure and F/U Documented - Current Medications Quality Measure: Measure #130: Documentation of Current Medications Documentation of Current Medications: <Current Medications Documented/Reviewed> [G8427] - Blood Pressure Screening Quality Measure: Screening for High Blood Pressure and Follow-Up Documented Does Patient Have Any of the Following: No Blood Pressure Classification: Normal BP Reading Systolic Measurement: 105 Diastolic Measurement: 49 Screening for High Blood Pressure: < Normal BP, F/U Not Required > [G8783] - Elder Abuse Suspicion Index EASI Reference Information: Elina SALDANA, Vane C, Barbara Hutton, Julita Elmore.Development and validation of a tool to assist physicians identification of elder abuse: The Elder Abuse Suspicion Index (EASI ). Journal of Elder Abuse and Neglect, 2008; 20 (3): 276-300.
[2017-05-22] MEDS ORDERED: ONDANSETRON 4 MG ODT TABLET SL PRN (15:35)
[2017-05-22] MEDS ORDERED: ACETAMINOPHEN 500 MG TABLET PO PRN (16:20)
== END 2017-05-22 17:17 | disposition home or self-care (01) ==
LOC: ER 22:16 → MEDSURG 05-22 02:09
PROVIDERS: ADMIT Internal Medicine; ATTEND Internal Medicine
DX: K52.9 Noninfective gastroenteritis and colitis, unspecified (principal); R11.2 Nausea with vomiting, unspecified; R19.7 Diarrhea, unspecified; J45.909 Unspecified asthma, uncomplicated; Z02.83 Encounter for blood-alcohol and blood-drug test
CPT/HCPCS: 99285 ×2; 96376; 96365; 96366; 96375; 96361; 83690; 80053 ×2; 81001; 89055; 87425; 81025; 87427; 80305; 87400; 85027 ×2; 74177; G0378; Q9967; J2405 ×2; 99236; J1200; J2550; J7030